=== PATIENT | female | born 1965 | race Two or more races ===

== ENCOUNTER 2022-02-05 23:26 | Inpatient (IN) | payer BC ==
[~2022-02-05] VITALS: Ht 162.6 cm; Wt 54.0 kg
[2022-02-06] VITALS (7 sets, daily range): BP systolic 92–118; BP diastolic 56–78
[2022-02-06] MEDS ORDERED: MAGNESIUM HYDROXIDE 30 ML UDC PO PRN (00:30)
[2022-02-06] MEDS ORDERED: MAG HYDROX/AL HYDROX/SIMETH 30 ML UDC PO PRN (00:30)
[2022-02-06] MEDS ORDERED: ACETAMINOPHEN 325 MG TABLET PO PRN (00:30)
[2022-02-06] MEDS ORDERED: ONDANSETRON HCL/PF 4 MG/2 ML VIAL IVP PRN (00:30)
[2022-02-06] MEDS ORDERED: Z GUARD REMEDY 4 OZ OINT TP PRN (00:30)
[2022-02-06] MEDS ORDERED: ZOLPIDEM TARTRATE 5 MG TABLET PO PRN (00:30)
[2022-02-06] MEDS ORDERED: NITROGLYCERIN 0.4 MG/TAB BOTTLE SL PRN ×2 (00:30→10:30)
--- NOTE | 2022-02-06 00:30 | NUR ---
HIDE EXAMINERSTUDY DIRECTOR NOTE PATIENT ARRIVED FROM [facility], ALERT/ORIENTED X 4, PT STABLE ON RA, NO S/S OF DISTRESS OR SOB NOTED, BREATHING EVEN AND UNLABORED. PT AMBULATORY WITH STEADY GAIT. PATIENT DENIES PAIN AT THIS TIME. PATIENT CONNECT TO TELE MONITOR READING SINUS RHYTHM, HR: 78. PATIENT HAS RIGHT KNEE LACERATION WITH NICK, PER PATIENT OCCURRED WHILE JUMPING OFF BOAT DOCK 7 DAYS AGO, STITCHES TO BE REMOVED IN 3 DAYS. IV ACCESS ON RIGHT AC #20G, INTACT AND FLUSHING WELL. PER PATIENT HISTORY OF HLD, SYNDROME X, GERD, ASTHMA, LUNG AND BREAST CANCER. SURGICAL HISTORY OF LEFT UPPER LUNG RESECTION, LUMPECTOMY, APPENDECTOMY, LEFT SENTINEL LYMPH NODE REMOVAL, PARTIAL HYSTERECTOMY AND RIGHT ROTATOR CUFF X 2. PATIENT FULLY VACCINATED FOR COVID X BOOSTER WITH MODERNA. SAFETY MEASURES IN PLACE: CALL LIGHT WITHIN REACH, SIDE RAILS UP X 2, BED LOCKED IN LOWEST POSITION. WILL CONTINUE TO MONITOR PATIENT
[2022-02-06] MEDS ORDERED: ANAS1TAB50 PO (00:38)
[2022-02-06] MEDS ORDERED: OMEP20CA15 PO (00:47)
[2022-02-06] MEDS ORDERED: EZET10TA16 PO (00:47)
[2022-02-06] MEDS ORDERED: PRAV10TA40 PO (00:47)
[2022-02-06] MEDS ORDERED: MONT10TA22 PO (00:47)
[2022-02-06] MEDS ORDERED: IBUPROFEN 600 MG TABLET PO PRN (01:00)
[2022-02-06] MEDS: IV NS 0.9% 1,000 ML IV PRN ×2 (01:13→17:36)
[2022-02-06] MEDS ORDERED: ENOXAPARIN SODIUM 60 MG/0.6 ML DISP.SYRIN SQ ONE (01:30)
--- NOTE | 2022-02-06 01:31 | NUR ---
WATER PURIFICATION CHEMIST NOTE PATIENT HAS ORDER FOR LOVENOX 60 MG, HOWEVER PATIENT WAS ALREADY GIVEN LOVENOX 55 MG AT 2220 IN [facility]. PER DAPHNEY ONTIVEROS, HOLD LOVENOX TONIGHT AND START TOMORROW MORNING
[2022-02-06 06:15] LABS: CALCIUM, SERUM 8.9 mg/dL (8.5-10.1); CARBON DIOXIDE 28 mmol/L (21-32); CHLORIDE 106 mmol/L (98-107); CREATININE 0.9 mg/dL (0.6-1.3); GLUCOSE 91 mg/dL (74-106); POTASSIUM 3.5 mmol/L (3.5-5.1); SODIUM SERUM 140 mmol/L (136-145); UREA NITROGEN, BLOOD 17 mg/dL (7-18)
--- NOTE | 2022-02-06 06:46 | NUR ---
PLANT PATHOLOGY TEACHER CLOSING NOTE PATIENT AWAKE IN BED, ALERT/ORIENTED X 4, PT ABLE TO MAKE NEEDS KNOWN. NO CHEST PAIN REPORTED SINCE PATIENT ARRIVED. PATIENT STABLE ON RA, NO S/S OF DISTRESS OR SOB NOTED, [id number] EVEN AND UNLABORED. RIGHT AC #20G IV ACCESS INTACT AND INFUSING NS @ 90 ML/HR. PATIENT ON EXTERNAL LIQUOR GRINDER MILL OPERATOR READING SINUS RHYTHM, HR: 71. PATIENT KEPT NPO EXCEPT MEDS. SAFETY MEASURES IN PLACE: CALL LIGHT WITHIN REACH, SIDE RAILS UP X 2, BED LOCKED IN LOWEST POSITION. WILL ENDORSE TO DAYSHIFT NURSE FOR CONTINUITY OF CARE
[2022-02-06 07:20] LABS: EOSINOPHILS % (AUTO) 11.5 % (0.0-6.0); HEMATOCRIT 38 % (33-45); HEMOGLOBIN 12.7 g/dL (11.5-14.8); LYMPHOCYTES # (AUTO) 2.6 K/uL (0.8-4.8); LYMPHOCYTES % (AUTO) 57.3 % (20.0-44.0); MEAN CORPUSCULAR HGB CONC 33 g/dl (31.0-36.0); MEAN CORPUSCULAR VOLUME 93 fL (82-100); MONOCYTES # (AUTO) 0.5 K/uL (0.1-1.30); MONOCYTES % (AUTO) 10.5 % (2.0-12.0); NEUTROPHILS # (AUTO) 0.9 K/uL (1.8-8.9); NEUTROPHILS % (AUTO) 19.7 % (43.0-81.0); PLATELET COUNT (AUTO) 305 K/uL (150-450); RED BLOOD CELL COUNT(AUTO) 4.09 MIL/uL (4.0-5.2); WHITE BLOOD COUNT (AUTO) 4.6 K/uL (4.3-11.0)
--- NOTE | 2022-02-06 07:23 | NUR ---
RN OPENING NOTES RECEIVED PATIENT IN BED AWAKE, A/O X4, VERBALLY RESPONSIVE. NO SIGNS OF ACUTE DISTRESS NOTED. ON ROOM AIR, NO SOB NOTED, BREATHING EVEN AND UNLABORED. DENIES ANY PAIN AT THIS TIME. NOTED WITH IV ACCESS ON RIGHT AC #20G, INTACT AND PATENT, WITH NS @90 ML/HR RUNNING. ON TELE MONITOR SHOWING SINUS RHYTHM, HR @76. SAFETY MEASURE IN PLACE. BED IN LOWEST AND LOCKED POSITION, SIDE RAILS UP X2, CALL LIGHT PLACED WITHIN EASY REACH. WILL CONTINUE TO MONITOR PATIENT.
[2022-02-06] MEDS ORDERED: OMEPRAZOLE 20 MG CAPSULE.DR PO SCH (07:30)
[2022-02-06] MEDS ORDERED: ALBU8.5H8 IH (08:37)
[2022-02-06] MEDS: ASPIRIN 81 MG TAB.CHEW PO SCH (08:47)
[2022-02-06] MEDS: PANTOPRAZOLE 40 MG TABLET.DR PO SCH (08:47)
[2022-02-06] MEDS: EZETIMIBE 10 MG TABLET PO SCH (08:47)
[2022-02-06] MEDS: ANASTROZOLE 1 MG TABLET PO SCH (08:48)
[2022-02-06] MEDS ORDERED: ENOXAPARIN SODIUM 60 MG/0.6 ML DISP.SYRIN SQ SCH (09:00)
[2022-02-06 09:47] LABS: ALBUMIN 3.3 g/dL (3.4-5.0); BILIRUBIN,DIRECT 0.1 mg/dL (0.0-0.2); BILIRUBIN,TOTAL 0.4 mg/dL (0.2-1.0); MAGNESIUM 2.2 mg/dL (1.8-2.4)
[2022-02-06 09:52] LABS: THYROID STIMULATING HORMONE 3.667 uIU/mL (0.358-3.74)
[2022-02-06] MEDS ORDERED: METOPROLOL TARTRATE INJ 5 MG/5 ML AMPUL ONE ×2 (09:59→10:30)
[2022-02-06] MEDS ORDERED: IOHEXOL-350 100 ML VIAL IV ONE (09:59)
[2022-02-06] MEDS ORDERED: NITROGLYCERIN 0.4 MG/TAB BOTTLE ONE (09:59)
[2022-02-06] MEDS ORDERED: CT SWABBABLE VALVE TRANS SET 1 EA INFUS.SET MC ONE (10:00)
[2022-02-06] MEDS ORDERED: IV NS 0.9% 250 ML IV ONE (10:00)
[2022-02-06] MEDS: METOPROLOL TARTRATE INJ 5 MG/5 ML AMPUL IVP PRN ×3 (10:16→10:26)
[2022-02-06] MEDS ORDERED: ALBUTEROL FS 2.5 MG/3 ML VIAL.NEB IH PRN (11:30)
[2022-02-06] MEDS ORDERED: IV NS 0.9% 1,000 ML ONE (13:46)
[2022-02-06] MEDS ORDERED: IV SET PRIMARY PUMP SET 1 EA INFUS.SET MC ONE (13:46)
[2022-02-06] MEDS ORDERED: IODIXANOL 150 ML IV ONE (13:47)
[2022-02-06] MEDS ORDERED: MIDAZOLAM HCL 2 MG/2ML VIAL ONE (13:47)
[2022-02-06] MEDS ORDERED: FENTANYL PF 100MCG/2ML AMPUL ONE (13:47)
--- NOTE | 2022-02-06 14:00 | NUR ---
RN NOTES PATIENT PICKED UP FOR PROCEDURE LEFT HEART CATH VIA BED, IN STABLE CONDITION.
[2022-02-06] MEDS ORDERED: LIDOCAINE 1% INJ 50 ML MDV IJ ONE (14:10)
--- NOTE | 2022-02-06 15:10 | NUR ---
RN NOTE PATIENT BACK FROM PROCEDURE IN STABLE CONDITION. REMAINS ALERT AND ORIENTED, VERBALLY RESPONSIVE. WITH TR BAND ON RIGHT WRIST, NO BLEEDING NOTED. VITAL SIGNS TAKEN, STABLE AND RECORDED. WILL CONTINUE TO MONITOR PATIENT.
[2022-02-06] MEDS: MONTELUKAST SODIUM (10MG) 10 MG TABLET PO SCH (17:21)
[2022-02-06] MEDS ORDERED: ALPRAZOLAM 1 MG TABLET PO PRN (17:30)
[2022-02-06] MEDS ORDERED: PRAVASTATIN SODIUM 20 MG TABLET PO SCH (18:00)
--- NOTE | 2022-02-06 18:50 | NUR ---
RN CLOSING NOTES PATIENT IN BED AWAKE, A/O X4, VERBALLY RESPONSIVE, NO SIGNS OF ACUTE DISTRESS NOTED. REMAINS STABLE IN ROOM AIR, NO SOB NOTED, BREATHING EVEN AND UNLABORED. TR BAND STILL ON, WITH BLEEDING NOTED AFTER THE 2ND TOIME REMOVAL OF AIR, REINTRODUCED AIR BACK. CHECKED BACK AFTER 30 MINUTES, REMOVED 4CC OF AIR, NO BLEEDING NOTED. WILL CONTINUE TO MONITOR PATIENT. SAFETY MEASURE IN PLACE. BED IN LOWEST AND LOCKED POSITION, SIDE RAILS UP X2, CALL LIGHT PLACED WITHIN EASY REACH. WILL ENDORSE TO NEXTB SHIFT FOR CONTINUITY OF CARE.
--- NOTE | 2022-02-06 19:25 | NUR ---
RN OPENING NOTES PATIENT IN BED AWAKE, A/O X4, VERBALLY RESPONSIVE, NO SIGNS OF ACUTE DISTRESS NOTED. REMAINS STABLE IN ROOM AIR, NO SOB NOTED, BREATHING EVEN AND UNLABORED. TR BAND STILL ON, 2CC OF AIR REMOVED AT THIS TIME WILL RECHECK IN 15 MINS REMINDED PT TO CALL ME RIGHT AWAY IF ANY BLEEDING NOTED.WILL CONTINUE TO MONITOR PATIENT. SAFETY MEASURE IN PLACE. BED IN LOWEST AND LOCKED POSITION, SIDE RAILS UP X2, CALL LIGHT PLACED WITHIN EASY REACH. WILL CONTINUE TO MONITOR.
[2022-02-06] MEDS ORDERED: ATORVASTATIN 10 MG TABLET PO SCH (22:00)
--- NOTE | 2022-02-06 22:15 | NUR ---
RN NOTES PER DR CORAL SURESH TO D/C LOVEGASPERX AT THIS TIME. ORDER CARRIED OUT.
--- NOTE | 2022-02-06 22:35 | NUR ---
RN NOTES TR BAND REMOVED AT THIS TIME. AIR WAS REMOVED PER PROTOCOL. NO NOTED BLEEDING AT SIDE AT THIS TIME.
--- NOTE | 2022-02-06 23:31 | NUR ---
RN NOTES PT WISHES TO SPEAK TO DR DERAS AND DR MONCADA REGARDING TROPONIN LEVEL AND L CARDIAC CATH RESULTS WILL ENDORSE TO DAY SHIFT NURSE.
[2022-02-07] VITALS: BP 93/53
[2022-02-07 06:14] LABS: BASOPHILS % (AUTO) 1.3 % (0.0-2.0); EOSINOPHILS % (AUTO) 13.7 % (0.0-6.0); HEMATOCRIT 39 % (33-45); LYMPHOCYTES # (AUTO) 1.5 K/uL (0.8-4.8); LYMPHOCYTES % (AUTO) 40.3 % (20.0-44.0); MEAN CORPUSCULAR HGB CONC 34 g/dl (31.0-36.0); MEAN CORPUSCULAR VOLUME 93 fL (82-100); MONOCYTES # (AUTO) 0.5 K/uL (0.1-1.30); MONOCYTES % (AUTO) 14.4 % (2.0-12.0); NEUTROPHILS # (AUTO) 1.1 K/uL (1.8-8.9); NEUTROPHILS % (AUTO) 30.3 % (43.0-81.0); PLATELET COUNT (AUTO) 295 K/uL (150-450); RED BLOOD CELL COUNT(AUTO) 4.14 MIL/uL (4.0-5.2); WHITE BLOOD COUNT (AUTO) 3.7 K/uL (4.3-11.0)
--- NOTE | 2022-02-07 07:01 | NUR ---
RN CLOSING NOTES PATIENT IN BED AWAKE, A/O X4, VERBALLY RESPONSIVE, NO SIGNS OF ACUTE DISTRESS NOTED. REMAINS STABLE IN ROOM AIR, NO SOB NOTED, BREATHING EVEN AND UNLABORED. REMOVED NO BLEEDING NOTED AT SITE. SAFETY MEASURE IN PLACE. BED IN LOWEST AND LOCKED POSITION, SIDE RAILS UP X2, CALL LIGHT PLACED WITHIN EASY REACH. WILL ENDORSE CARE TO DAY SHIFT NURSE.
--- NOTE | 2022-02-07 07:04 | NUR ---
LOMBARDI DEVELOPER OPENING NOTES RECEIVED PATIENT AWAKE, ON ROOM, NO S/S OF RESPIRATORY DISTRESS OR SOB. A/Ox4. PATIENT HAS IV ACCESS RAC #20 G SL. INTACT AND PATENT, NO S/S OF INFILTRATION. ON TELE MONITORING SHOWING SR WITH HR 78 AT THIS TIME. PATIENT IS AMBULATORY AND HAS BATHROOM PRIVILEGE. SKIN ISSUES: R LEG LACERATION WITH NICK ON KNEE. SAFETY MEASURES IN PLACE: BED LOCKED AND IN LOWEST POSITION, SIDE RAILS x2, BED ALARM ON, CALL LIGHT WITHIN REACH. WILL CONTINUE TO MONITOR.
[2022-02-07 07:07] LABS: ALBUMIN 3.2 g/dL (3.4-5.0); BILIRUBIN,TOTAL 0.4 mg/dL (0.2-1.0); CALCIUM, SERUM 8.8 mg/dL (8.5-10.1); CREATININE 0.9 mg/dL (0.6-1.3); MAGNESIUM 2.1 mg/dL (1.8-2.4); PHOSPHORUS 4.2 mg/dL (2.5-4.9); POTASSIUM 3.6 mmol/L (3.5-5.1); TOTAL PROTEIN, SERUM 6.9 g/dL (6.4-8.2)
[2022-02-07 08:00] VITALS: BP 101/60
[2022-02-07] MEDS: ASPIRIN 81 MG TAB.CHEW PO SCH (08:23)
[2022-02-07] MEDS: EZETIMIBE 10 MG TABLET PO SCH (08:23)
[2022-02-07] MEDS: PANTOPRAZOLE 40 MG TABLET.DR PO SCH (08:23)
[2022-02-07] MEDS: ANASTROZOLE 1 MG TABLET PO SCH (08:23)
[2022-02-07] MEDS ORDERED: AMLODIPINE BESYLATE 5 MG TABLET PO SCH (09:00)
[2022-02-07] MEDS: ALBUTEROL HALF STRENGTH 1.25 MG/3 ML VIAL.NEB IH SCH ×3 (09:30→16:03)
[2022-02-07] MEDS ORDERED: predniSONE 20 MG TABLET PO SCH (09:30)
--- NOTE | 2022-02-07 15:31 | NUR ---
RT Tx not given at scheduled time because not aware of order.
[2022-02-07 16:00] VITALS: BP 93/53
[2022-02-07] MEDS ORDERED: PRED20TA PO (16:44)
[2022-02-07] MEDS ORDERED: FLUT1DIS3 INH (16:44)
[2022-02-07] MEDS ORDERED: ASPI-1169 PO (16:44)
[2022-02-07] MEDS ORDERED: AMLO2.5T4 PO (16:48)
[2022-02-07] MEDS: MONTELUKAST SODIUM (10MG) 10 MG TABLET PO SCH (17:55)
--- NOTE | 2022-02-07 19:37 | NUR ---
GLOBAL COMPENSATION MANAGER NOTES PATIENT DISCHARGED HOME, STABLE A/Ox4, ABLE TO MAKE NEEDS KNOWN. STABLE ON ROOM AIR, NO COMPLAINTS OF SOB, RESPIRATORY DISTRESS, CHEST PAIN OR CARDIAC DISTRESS. PATIENT GIVEN DISCHARGE INSTRUCTIONS AND HEALTH TEACHINGS, VERBALIZED UNDERSTANDING. ALL PAPERWORK SIGNED, COPIED AND FILED IN CHART. IV ACCESS REMOVED, PRESSURE DRESSING IN PLACE NO S/S OF BLEEDING. TELE MONITORING REMOVED. ID BAND REMOVED. PATIENT LEFT UNIT @1935 ACCOMPANIED BY RN QUIQUE LEFT VIA WHEELCHAIR. PATIENT LEFT IN PRIVATE CAR WITH DAUGHTER. CHARGE NURSE AND MD AWARE.
== END 2022-02-07 19:45 | disposition home or self-care (01) | DRG 281 ==
LOC: TELE 23:54
PROVIDERS: ADMIT Nurse Practitioner Acute Care; ATTEND Internal Medicine
PROC: 4A023N7 Measurement of Cardiac Sampling and Pressure, Left Heart, Percutaneous Approach (ICD-10-PCS; principal; 2022-02-06)
PROC: B211YZZ Fluoroscopy of Multiple Coronary Arteries using Other Contrast (ICD-10-PCS; 2022-02-06)
DX: I21.4 Non-ST elevation (NSTEMI) myocardial infarction (principal); C78.00 Secondary malignant neoplasm of unspecified lung; J45.901 Unspecified asthma with (acute) exacerbation; C50.919 Malignant neoplasm of unspecified site of unspecified female breast; E78.5 Hyperlipidemia, unspecified; Z90.49 Acquired absence of other specified parts of digestive tract; Z90.12 Acquired absence of left breast and nipple
CPT/HCPCS: 36415; 75574; 80048-TC; 80053-TC; 80061-TC; 80076-TC; 83735-TC; 84100-TC; 84439-TC; 84443-TC; 84484-TC; 85025-TC; 85610-TC; 87081-TC; 93307-TC; 94799-TC; G0378; G0500; J1644; J1650; J2250; J3010; J3490; J7030; J7050; Q9967